=== PATIENT | female | born 1965 | race Caucasian/White ===

== ENCOUNTER 2016-12-18 15:19 | Outpatient (CLI) | payer OTHER ==
[2015-08-14 08:40] VITALS: BMI 39.2
--- NOTE | 2016-12-19 13:56 | MRI ---
EXAM: Lumbar spine MRI without contrast. HISTORY: Low back pain. COMPARISON: Lumbar spine CT scan 08/14/2015 and lumbar spine MRI 01/12/2015. TECHNIQUE: Multiplanar, multisequence MR images were acquired of the lumbar spine without contrast. FINDINGS: Five lumbar-type vertebra are present. There is mild thoracolumbar dextroscoliosis cente red at L2-3 and a trace retrolisthesis of L4 on L5. The lumbar vertebra are normal in height and in trinsic bone marrow signal. There is mild endplate irregularity in the lower thoracic and lumbar sp ine with small chronic Schmorl's nodes fromT11 to L4. Conus medullaris ends at L1-2 and has normal signal intensity. The partially visualized liver, spleen and kidneys are unremarkable. There are no paravertebral masses. T12-L1: The intervertebral disc is normal. L1-2: The intervertebral disc is normal. L2-3: The intervertebral disc is normal. L3-4: There is a minor disc bulge that is asymmetric to the right which minimally narrows the infer ior right neural foramen. Minor bilateral facet hypertrophy is present. There is mild right and mi nor left neural foraminal stenosis. No central canal stenosis is present. L4-5: There is retrolisthesis of L4 on L5 and there is a minor disc bulge with marginal osteophytes that narrows the inferior neural foramina bilaterally. Mild bilateral hypertrophic facet arthropat hy and ligamentum flavum hypertrophy is present. This causes mild bilateral foraminal stenosis. L5-S1: There is a minor right posterior disc bulge that may adversely contact the right S1 nerve in the lateral recess. Mild right facet arthropathy and ligamentum flavum hypertrophy is present with out foraminal stenosis. IMPRESSION: 1. No change minor lumbar degenerative spondylosis with small chronic Schmorl's nodes from L1 to L4 . 2. No lumbar disc herniations. 3. Mild thoracolumbar dextroscoliosis centered at L2-3.
== END 2016-12-18 15:20 | disposition home or self-care (01) ==
LOC: RAD 15:19
PROVIDERS: ATTEND Internal Medicine
DX: M54.5 Low back pain (principal)

== ENCOUNTER 2017-01-01 14:32 | Outpatient (CLI) ==
[2015-08-14 08:40] VITALS: BMI 39.2
--- NOTE | 2017-01-01 14:53 | DI ---
EXAM: Left knee four views HISTORY: Left knee pain COMPARISON: None FINDINGS: The bones are normal. The medial, lateral, and patellofemoral compartments are normal in height. No joint effusion. IMPERSSION: Normal examination.
== END 2017-01-01 14:33 | disposition home or self-care (01) ==
LOC: RAD 14:32
PROVIDERS: ATTEND Internal Medicine
DX: M25.562 Pain in left knee (principal)

== ENCOUNTER 2017-01-07 16:16 | Emergency (ER) | payer OTHER ==
[2017-01-07 16:28] VITALS: BP 110/68; TEMP 102.1; BMI 40.2
--- NOTE | 2017-01-07 16:39 | ED.PDOC ---
General ED Provider: Dr. RELL CHEUNG JR Chief Complaint: Fever Stated Complaint: started last night with diffuse abd pain and then today has had fever and nausea, no appetite. complains of hip pain [ End ]102.1 124 20 93 % 110/68 12/08 Time Seen by Physician: 16:35 Mode of Arrival: Wheelchair Information Source: Patient Exam Limitations: No limitations Primary Care Provider: GIOVANNY SWEENEY Nursing and Triage Documentation Reviewed and Agree: No Review of Systems - Review Of Systems Constitutional: Reports: Chills, Fever Eyes: Reports: No symptoms Ears, Nose, Mouth, Throat: Reports: Mouth pain (dry) Respiratory: Reports: No symptoms Cardiac: Reports: No symptoms GI: Reports: Abdominal pain. Denies: Constipated, Diarrhea, Difficulty swallowing, Nausea : Reports: No symptoms Musculoskeletal: Reports: No symptoms Skin: Reports: No symptoms Neurological: Reports: No symptoms Endocrine: Reports: No symptoms Hematologic/Lymphatic: Reports: No symptoms All Other Systems: Other Past Medical History - Past Medical History Previously Healthy: No Endocrine: Reports: None Cardiovascular: Reports: None Respiratory: Reports: None Hematological: Reports: None Gastrointestinal: Reports: None Genitourinary: Reports: None Neuro/Psych: Reports: Anxiety, Depression Musculoskeletal: Reports: Back Pain Cancer: Reports: None Last Menstrual Period: none Other Pertinent Past Medical History: history of pinched nerve per RN - Surgical History General Surgical History: Reports: , Cholecystectomy, Tonsillectomy - Family History Family History: Reports: Unknown - Social History Smoking Status: Former smoker Hx Substance Use: No Alcohol Screening: None Physical Exam - Physical Exam Appearance: Well-appearing, Obese Pain Distress: Moderate Eyes: INES, EOMI, Conjunctiva clear ENT: Ears normal, Nose normal, Oropharynx normal Neck: Supple Respiratory: Airway patent, Breath sounds clear, Breath sounds equal, Respirations nonlabored GI/: Soft, No masses, Bowel sounds normal, No Organomegaly, Tender Musculoskeletal: Normal strength, ROM intact, No edema, No calf tenderness Skin: Warm, Dry, Normal color Neurological: Sensation intact, Motor intact, Reflexes intact, Cranial nerves intact, Alert, Oriented Psychiatric: Affect appropriate, Mood appropriate Critical Care Note - Critical Care Note Total Time (mins): 0 Course - Course Hematology/Chemistry: 01/07/17 16:50 01/07/17 16:50 Orders, Labs, Meds: Lab Review 01/07/17 16:50 WBC 10.94 H RBC 5.08 Hgb 14.9 Hct 43.7 MCV 86.0 MCH 29.3 MCHC 34.1 RDW Coeff of Ifeanyi 13.2 Plt Count 256 Immature Gran % (Auto) 0.3 Neut % (Auto) 81.6 Lymph % (Auto) 11.2 [place] % (Auto) 6.3 Eos % (Auto) 0.3 Baso % (Auto) 0.3 Immature Gran # (Auto) 0.0 Neut # 8.9 H Lymph # 1.2 [place] # 0.7 Eos # 0.0 Baso # 0.0 Sodium 133 L Potassium 3.6 Chloride 101 Carbon Dioxide 22 Anion Gap 13.6 BUN 9 Creatinine 0.85 Estimated GFR (MDRD) 71.00 BUN/Creatinine Ratio 10.58 Glucose 139 H Lactic Acid 10.0 Calcium 8.9 Total Bilirubin 0.72 AST 214 H ALT 197 H Alkaline Phosphatase 122 H Total Protein 7.6 Albumin 3.9 Globulin 3.7 Albumin/Globulin Ratio 1.05 Amylase 25 Lipase 18 Procalcitonin 0.06 Urine Color Dark Urine Clarity Clear Urine pH 7.0 Ur Specific [place] 1.020 Urine Protein Trace Urine Glucose (UA) Negative Urine Ketones Trace Urine Blood Trace-intact Urine Nitrite Negative Urine Bilirubin 1+ Urine Urobilinogen 4.0 Ur Leukocyte Esterase Negative Urine Microscopic RBC 2-5 Urine Microscopic WBC 0-2 Ur Squamous Epith Cells 5-10 Amorphous Sediment Trace Urine Bacteria Trace Urine Mucus 1+ H. pylori IgG Antibody Positive Orders Category Date Time Status ED IV/MEDIPORT/POWERPORT .ONCE EMERGENCY 01/07/17 16:36 Active ED VITAL SIGNS Q1HR EMERGENCY 01/07/17 16:58 Active AMYLASE Stat LAB 01/07/17 16:50 Completed BLOOD CULTURE Stat LAB 01/07/17 16:50 Received CBC W/ AUTO DIFF Stat LAB 01/07/17 16:50 Completed COMPREHENSIVE METABOLIC PANEL Stat LAB 01/07/17 16:50 Completed H. PYLORI SCREEN Stat LAB 01/07/17 16:50 Completed HEPATITIS PANEL, ACUTE Stat LAB 01/07/17 16:50 Received LACTIC ACID Stat LAB 01/07/17 16:50 Completed LIPASE Stat LAB 01/07/17 16:50 Completed PROCALCITONIN Stat LAB 01/07/17 16:50 Completed URINALYSIS C & S IF INDICATED Stat LAB 01/07/17 16:50 Completed 0.9 % Sodium Chloride [Saline Flush] MEDS 01/07/17 16:36 Active 1 syr IVF PRN PRN CT ABDOMEN/PELVIS WO CONTRAST Stat RADS 01/07/17 16:37 Completed Medications Generic Name Dose Route Start Last Admin Trade Name Freq PRN Reason Stop Dose Admin Sodium Chloride 1 syr 01/07/17 16:36 Saline Flush IVF PRN PRN To flush IV Vital Signs: Temp Pulse Resp BP Pulse Ox 01/07/17 16:17 102.1 F H 124 H 20 110/68 93 L Departure - Departure Time of Disposition: 17:34 Disposition: HOME SELF-CARE Discharge Problem: Elevated liver enzymes, Helicobacter positive gastritis Instructions: Helicobacter Pylori (ED) Condition: Good Pt referred to PMD for follow-up: Yes Additional Instructions: follow up PMD one week discuss liver function elevation helicobacter can cause ulcers- consider prevpack to eliminate helicobacter Prescriptions: Lansoprazole/Amoxiciln/Clarith [[employer] Patient Pack] 1 each PO BID #1 combo..pkg Allergies/Adverse Reactions: Allergies codeine Adverse Reaction (Verified 01/07/17 16:24) Home Medications: Ambulatory Orders Hydrocodone/Acetaminophen [Hydrocodon-Acetaminophen 5-325] 1 each PO BID Naproxen [Naprosyn] 500 mg PO Q12HR PRN #30 tablet 08/14/15 Omeprazole [Prilosec] 40 mg PO DAILY 08/14/15 Sertraline HCl [Zoloft] 100 mg PO DAILY 08/14/15 Lansoprazole/Amoxiciln/Clarith [Prevpac Patient Pack] 1 each PO BID #1 combo..pkg 01/07/17
[2017-01-07 16:57] LABS: BASOPHILS % (AUTO) 0.3 % (0.0-3.0); EOSINOPHILS % (AUTO) 0.3 % (0.0-7.0); HEMATOCRIT 43.7 % (37.0-47.0); HEMOGLOBIN 14.9 g/dl (12.0-16.0); IMMATURE GRANULOCYTE % (AUTO) 0.3 % (0.0-5.0); LYMPHOCYTES # (AUTO) 1.2 K/uL (0.60-3.4); LYMPHOCYTES % (AUTO) 11.2 (10.0-50.0); MEAN CORPUSCULAR HEMOGLOBIN 29.3 pg (27.0-31.0); MEAN CORPUSCULAR HGB CONC 34.1 (31.8-35.4); MONOCYTES # (AUTO) 0.7 K/uL (0.4-2.0); MONOCYTES % (AUTO) 6.3 (0-10); NEUTROPHILS # (AUTO) 8.9 K/ul (2.0-6.9); NEUTROPHILS % (AUTO) 81.6; PLATELET COUNT 256 10^3/uL (140-440); RED BLOOD COUNT 5.08 10^6/ul (4.20-5.40); WHITE BLOOD COUNT 10.94 K/ul (4.6-10.2)
[2017-01-07 17:02] LABS: BILIRUBIN,URINE 1+ (NEGATIVE); KETONES,URINE Trace (NEGATIVE); LEUKOCYTE ESTERASE ,URINE Negative (NEGATIVE); NITRITE,URINE Negative (NEGATIVE); PROTEIN,URINE Trace (NEGATIVE); URINE, BLOOD Trace-intact (NEGATIVE)
[2017-01-07 17:03] LABS: ADD URINE MICROSCOPIC YES
[2017-01-07 17:04] LABS: BACTERIA,URINE TRACE (NOT PRESENT)
[2017-01-07 17:09] LABS: H. PYLORI ANTIBODY POSITIVE (NEGATIVE); H.PYLORI INTERNAL QC INTERNAL QC VALID
[2017-01-07 17:19] LABS: ALBUMIN 3.9 g/dL (3.4-5.0); ALBUMIN/GLOBULIN RATIO 1.05; ANION GAP 13.6; BILIRUBIN,TOTAL 0.72 mg/dL (0.00-1.20); BUN/CREATININE RATIO 10.58; CALCIUM 8.9 mg/dL (8.2-10.2); CREATININE 0.85 mg/dL (0.60-1.30); POTASSIUM 3.6 mmol/L (3.5-5.10); TOTAL PROTEIN 7.6 g/dL (6.4-8.2)
--- NOTE | 2017-01-07 17:19 | CT ---
EXAM: CT abdomen pelvis without contrast TECHNIQUE: Helical axial CT of the abdomen pelvis was performed without contrast with coronal and s agittal reconstructions. COMPARISON: CT abdomen pelvis from 10/05/2009 HISTORY: Abdominal pain FINDINGS: There is no acute abnormality identified. Specifically there is no free air free fluid o r bowel wall thickening or edema or pathologic lymph nodes or obstruction or ileus. There has been prior cholecystectomy. There is trace atherosclerosis. Again seen is some minimal edema in the lavelle t of the mesentery which is nonspecific but not particularly changed compared to prior. The liver, spleen, pancreas, adrenal glands and kidneys are normal. There are no kidney stones or h ydronephrosis identified. Lung bases are normal. Uterus and adnexa are unremarkable. The urinary bladder is decompressed. IMPRESSION: 1. No acute abnormality in the abdomen or pelvis. 2. Continued minimal edema in the root of the mesentery as described which is nonspecific but uncha nged. 3. Prior cholecystectomy.
== END 2017-01-07 17:50 | disposition home or self-care (01) ==
LOC: ED 16:16
DX: R74.8 Abnormal levels of other serum enzymes (principal); A04.8 Other specified bacterial intestinal infections; Z79.899 Other long term (current) drug therapy
CPT/HCPCS: 36415; 80053; 80074; 81001; 82150; 83605; 83690; 84145; 85025; 86677; 87040; 99283

== ENCOUNTER 2017-01-09 11:43 | Outpatient (CLI) | payer OTHER ==
[2017-01-09 12:21] LABS: ALBUMIN 3.7 g/dL (3.4-5.0); ALBUMIN/GLOBULIN RATIO 0.9; BILIRUBIN,TOTAL 0.37 mg/dL (0.00-1.20); BUN/CREATININE RATIO 14.28; CALCIUM 9.6 mg/dL (8.2-10.2); CREATININE 0.77 mg/dL (0.60-1.30); TOTAL PROTEIN 7.8 g/dL (6.4-8.2)
== END 2017-01-09 11:44 | disposition home or self-care (01) ==
LOC: LAB 11:43
PROVIDERS: ATTEND Emergency Medicine
DX: R94.5 Abnormal results of liver function studies (principal); J02.9 Acute pharyngitis, unspecified
CPT/HCPCS: 36415; 80053; 87651; 87880

== ENCOUNTER 2017-11-09 14:10 | Outpatient (CLI) | END 2017-11-09 14:11 | disposition home or self-care (01) | LOC: RAD 14:10 | PROVIDERS: ATTEND Internal Medicine | DX: Z12.31 Encounter for screening mammogram for malignant neoplasm of breast (principal) | CPT/HCPCS: 77067 ==

== ENCOUNTER 2018-11-11 13:47 | Outpatient (CLI) ==
--- NOTE | 2018-11-12 09:42 | MAMMO ---
EXAM: Bilateral digital screening mammogram (2-D and 3-D) History: Screening Comparison: Bilateral mammogram 11/09/2017 Findings: MLO and CC views of bilateral breasts demonstrate scattered fibroglandular breast parenchy ma. CAD was reviewed by the radiologist. Tomosynthesis was performed. There are no dominant masses , no suspicious microcalcifications and no architectural distortions Impression: Stable negative mammogram. Recommend followup routine screening mammography in 1 year. BIRADS 1, negative
== END 2018-11-11 13:48 | disposition home or self-care (01) ==
LOC: RAD 13:47
PROVIDERS: ATTEND Internal Medicine
DX: Z12.31 Encounter for screening mammogram for malignant neoplasm of breast (principal)